=== PATIENT | male | born 1955 | race Two or more races ===

== ENCOUNTER 2017-08-28 20:54 | Inpatient (IN) | payer MEDICARE, MEDICAID ==
[~2017-08-28] VITALS: Ht 177.8 cm; Wt 79.5 kg
[~2017-08-28 20:54] MED LIST: ACET-1156 PR; ACET120S38 PO; ALPR1TAB2 PO; AMLO10TA2 GT; ASCO-22 PO; ASPI-498 GT; BACL10TA PO; BISA-4 PR; CARI-277 PO; DIPH25CA46 GT; DOCU-94 PO; FLUT0.05 NAS; FURO40TA4 PO; GABA300C10 PO; GUAI200T2 GT; GUAI600T23 PO; HAL5T GT; HYDR-4683 PO; HYOS0.1269 SL; INSUINJ48 SC; IPRAAER6 IN; LACT10SO3 GT; LEVE500T22 PO; LISI40TA PO; LORA-654 PO; LORA10CA12 PO; MAGN400T5 OR; MAGNSUS71 PO; METH500T6 GT; METO2.5T11 PO; MORP-109 PO; MORP1TAB12 PO; MULTLIQ29 OR; MUPI2OIN10 TOP; OXYM-15; PANT40TA2 GT; POTA20TA53 PO; SENN1TAB14 GT; SPIR25TA88 PO; ZIN220C GT
[2017-08-28 21:44] LABS: Basophils # (auto) 0.1 uL; Eosinophils # (auto) 0.3 uL; Eosinophils % (auto) 2.2 % (0.0-7.0); Hematocrit 44.8 % (41.0-53.0); Hemoglobin 15.1 g/dL (13.5-17.5); Lymphocytes # (auto) 1.3 uL; Lymphocytes % (auto) 10.4 % (10.0-50.0); Mean Corpuscular Hemoglobin 29.4 pg (28.0-32.0); Mean Corpuscular Hgb Conc. 33.7 g/dL (32.0-36.0); Mean Corpuscular Volume 87.1 fL (80.0-100.0); Monocytes # (auto) 0.7 uL; Monocytes % (auto) 6.1 % (0.0-12.0); Neutrophils # (auto) 9.8 uL; Neutrophils % (auto) 80.3 % (37.0-80.0); Nucleated Red Blood Cells % 0.1 %; Platelet Count (auto) 202 10^3/uL (140-450); Red Blood Cells 5.14 10^6/uL (4.5-5.90); Red Cell Distribution Width 13.6 % (11.8-14.3); White Blood Cell 12.2 10^3/uL (4.4-10.8)
[2017-08-28 21:52] LABS: INR 0.95 (0.9-1.15); Prothrombin Time 10.4 sec (9.37-12.3)
[2017-08-28 22:04] LABS: Alanine Aminotransferase 50 U/L (16-61); Albumin 3.5 g/dL (3.4-5.0); Alkaline Phosphatase 65 U/L (45-117); Anion Gap 6 (5-15); Aspartate Aminotransferase 25 U/L (15-37); BUN/Creatinine Ratio 22.8; Bilirubin, Total 0.5 mg/dL (0.2-1.0); Blood Urea Nitrogen 18 mg/dL (7-18); Calcium 8.9 mg/dL (8.5-10.1); Carbon Dioxide 33 mmol/L (21-32); Chloride 99 mmol/L (98-107); GFR African American 128 mL/min; GFR Non-African American 106 mL/min; Glucose 220 mg/dL (74-106); Magnesium 2.5 mg/dL (1.6-2.6); Potassium 3.7 mmol/L (3.5-5.1); Sodium 138 mmol/L (136-145); Total Protein 7.6 g/dL (6.4-8.2)
[2017-08-28] MEDS ORDERED: LEVOFLOXACIN 750MG 150 ML IV ONE (22:30)
[2017-08-29] MEDS ORDERED: SODIUM CHLORIDE 0.9% 1,000 ML IV SCH (01:09)
[2017-08-29] MEDS ORDERED: DEXTROSE (50%) 50ML SYRG IV PRN (01:15)
[2017-08-29] MEDS ORDERED: AZITHROMYCIN 500MG/ 250ML 250 ML IV ONE (01:15)
[2017-08-29] MEDS ORDERED: FUROSEMIDE 20 MG/2 ML VIAL IV ONE (01:15)
[2017-08-29] MEDS ORDERED: cefTRIAXone 1GM/10ml IVPUSH 10 ML IV ONE (01:15)
[2017-08-29] MEDS ORDERED: MORPHINE SULFATE 4 MG/ML SYR/VIAL IV PRN (01:15)
[2017-08-29] MEDS ORDERED: NITROGLYCERIN 0.4 MG SL TAB SL PRN (01:15)
[2017-08-29] MEDS ORDERED: ONDANSETRON HCL 4 MG/2 ML VIAL IV PRN ×2 (01:15→19:15)
[2017-08-29] MEDS ORDERED: PANTOPRAZOLE 40 MG/10 ML VIAL IV ONE (01:15)
[2017-08-29] MEDS: MORPHINE SULFATE 4 MG/ML SYR/VIAL IV PRN (02:23)
[2017-08-29] MEDS: ALBUTEROL SULF 2.5 MG/0.5ML(0.5%) NEB SOLN NEB PRN ×2 (04:11→20:26)
[2017-08-29] MEDS: IPRATROPIUM BROM 0.5 MG/2.5ML INH SOL NEB PRN ×2 (04:11→20:26)
[2017-08-29] MEDS: InsuLIN REG 1unit/0.01ml Soln (100units/ml) SC SCH ×3 (06:11→18:16)
[2017-08-29] MEDS: ACCU-CHEK COMFORT CURVE STRIP VI SCH ×3 (06:12→18:15)
[2017-08-29] MEDS ORDERED: METOLAZONE 5 MG TAB GT SCH (10:00)
[2017-08-29] MEDS: DOCUSATE ORAL LIQUID 100 MG/10 ML UD GT SCH ×2 (10:30→22:00)
[2017-08-29] MEDS: ENOXAPARIN SOD 40 MG/0.4 ML SYRINGE SC SCH (10:30)
[2017-08-29] MEDS: PANTOPRAZOLE 40 MG/10 ML VIAL IV SCH (10:30)
[2017-08-29] MEDS: LEVETIRACETAM 500 MG TAB PO SCH ×2 (10:30→22:00)
[2017-08-29] MEDS: LISINOPRIL 20 MG TAB GT SCH (10:30)
[2017-08-29] MEDS ORDERED: ACETAMINOPHEN 650 MG RECT SUPP PR ONE ×2 (11:22→11:30)
[2017-08-29] MEDS ORDERED: ONDANSETRON HCL 4 MG/2 ML VIAL IV ONE (12:30)
[2017-08-29] MEDS: PIPERACILLIN-TAZOB 3.375GM 50 ML IV SCH ×2 (15:00→23:00)
[2017-08-29] MEDS ORDERED: MAGNESIUM CITRATE SOLUTION 300 ML BTL PO ONE (16:00)
[2017-08-29] MEDS: SODIUM CHLORIDE 0.9% 1,000 ML IV SCH (16:06)
[2017-08-29] MEDS: LACTULOSE 20Gm/30ML SOLN GT SCH ×2 (18:25→22:00)
[2017-08-29] MEDS: ACETAMINOPHEN 325 MG TAB PO PRN (19:39)
[2017-08-29 21:34] VITALS: BP 117/67
[2017-08-29] MEDS: AZITHROMYCIN 500MG/ 250ML 250 ML IV SCH (22:00)
[2017-08-29] MEDS ORDERED: cefTRIAXone 1GM/10ml IVPUSH 10 ML IV SCH (22:00)
[2017-08-29 22:30] VITALS: BP 102/69
[2017-08-29 23:00] VITALS: BP_SYST 101; BP_SYST 102; BP_DIAS 56; BP_DIAS 60
[2017-08-29 23:30] VITALS: BP 103/66
[2017-08-30] VITALS (10 sets, daily range): BP systolic 102–131; BP diastolic 56–88
[2017-08-30] MEDS: LACTULOSE 20Gm/30ML SOLN GT SCH ×6 (02:00→23:00)
[2017-08-30] MEDS: SODIUM CHLORIDE 0.9% 1,000 ML IV SCH (02:05)
[2017-08-30 05:23] LABS: Basophils # (auto) 0.1 uL; Basophils % (auto) 0.8 % (0.0-2.0); Eosinophils # (auto) 0.1 uL; Eosinophils % (auto) 0.6 % (0.0-7.0); Hematocrit 43.9 % (41.0-53.0); Hemoglobin 14.6 g/dL (13.5-17.5); Lymphocytes # (auto) 1.1 uL; Lymphocytes % (auto) 9.3 % (10.0-50.0); Mean Corpuscular Hemoglobin 29.2 pg (28.0-32.0); Mean Corpuscular Hgb Conc. 33.2 g/dL (32.0-36.0); Monocytes # (auto) 0.9 uL; Monocytes % (auto) 7.3 % (0.0-12.0); Neutrophils # (auto) 9.6 uL; Platelet Count (auto) 189 10^3/uL (140-450); Red Blood Cells 4.99 10^6/uL (4.5-5.90); Red Cell Distribution Width 13.7 % (11.8-14.3); White Blood Cell 11.7 10^3/uL (4.4-10.8)
[2017-08-30 05:46] LABS: Albumin 3.2 g/dL (3.4-5.0); BUN/Creatinine Ratio 23.6; Bilirubin, Total 0.9 mg/dL (0.2-1.0); Potassium 3.5 mmol/L (3.5-5.1); Total Protein 7.2 g/dL (6.4-8.2)
[2017-08-30] MEDS: InsuLIN REG 1unit/0.01ml Soln (100units/ml) SC SCH ×4 (06:00→18:00)
[2017-08-30] MEDS: PIPERACILLIN-TAZOB 3.375GM 50 ML IV SCH ×4 (06:00→23:00)
[2017-08-30] MEDS: ACCU-CHEK COMFORT CURVE STRIP VI SCH ×4 (06:00→18:00)
[2017-08-30] MEDS: IPRATROPIUM BROM 0.5 MG/2.5ML INH SOL NEB PRN ×3 (06:46→19:37)
[2017-08-30] MEDS: ALBUTEROL SULF 2.5 MG/0.5ML(0.5%) NEB SOLN NEB PRN ×3 (06:46→19:38)
[2017-08-30] MEDS: LEVETIRACETAM 500 MG TAB PO SCH ×2 (10:00→22:00)
[2017-08-30] MEDS: LISINOPRIL 20 MG TAB GT SCH (10:00)
[2017-08-30 10:36] LABS: Urine Bacteria NONE SEEN /hpf (None Seen); Urine Blood 2+ /uL (Negative); Urine Specific Gravity 1.027 (1.001-1.035); Urine WBC 2 /hpf (0 - 3)
[2017-08-30] MEDS: PANTOPRAZOLE 40 MG/10 ML VIAL IV SCH (10:59)
[2017-08-30] MEDS: DOCUSATE ORAL LIQUID 100 MG/10 ML UD GT SCH ×2 (10:59→22:00)
[2017-08-30] MEDS: ENOXAPARIN SOD 40 MG/0.4 ML SYRINGE SC SCH (11:58)
[2017-08-30] MEDS ORDERED: MAGNESIUM CITRATE SOLUTION 300 ML BTL PO ONE (14:30)
[2017-08-30] MEDS ORDERED: Diabetisource AC 1 Liter GT SCH (14:30)
[2017-08-30] MEDS ORDERED: SODIUM CHLORIDE 0.9% 1,000 ML IV SCH (14:30)
[2017-08-30] MEDS: MORPHINE SULFATE 4 MG/ML SYR/VIAL IV PRN (21:15)
[2017-08-30] MEDS: AZITHROMYCIN 500MG/ 250ML 250 ML IV SCH (23:00)
[2017-08-30] MEDS: METOCLOPRAMIDE HCL 5MG/ml INJ 2ml VIAL IV SCH (23:00)
[2017-08-31] VITALS (7 sets, daily range): BP systolic 108–133; BP diastolic 69–81
[2017-08-31] MEDS: LACTULOSE 20Gm/30ML SOLN GT SCH ×7 (02:00→21:33)
[2017-08-31 05:14] LABS: Basophils # (auto) 0.1 uL; Basophils % (auto) 1.4 % (0.0-2.0); Eosinophils # (auto) 0.5 uL; Eosinophils % (auto) 7.2 % (0.0-7.0); Hemoglobin 14.3 g/dL (13.5-17.5); Lymphocytes % (auto) 14.9 % (10.0-50.0); Mean Corpuscular Hemoglobin 29.5 pg (28.0-32.0); Mean Corpuscular Hgb Conc. 33.2 g/dL (32.0-36.0); Mean Corpuscular Volume 89.1 fL (80.0-100.0); Monocytes # (auto) 0.8 uL; Monocytes % (auto) 11.6 % (0.0-12.0); Neutrophils # (auto) 4.4 uL; Neutrophils % (auto) 64.9 % (37.0-80.0); Nucleated Red Blood Cells % 0.1 %; Platelet Count (auto) 182 10^3/uL (140-450); Red Blood Cells 4.83 10^6/uL (4.5-5.90); Red Cell Distribution Width 13.5 % (11.8-14.3); White Blood Cell 6.7 10^3/uL (4.4-10.8)
[2017-08-31 05:35] LABS: BUN/Creatinine Ratio 26.8; Potassium 3.3 mmol/L (3.5-5.1)
[2017-08-31] MEDS: METOCLOPRAMIDE HCL 5MG/ml INJ 2ml VIAL IV SCH ×3 (05:52→21:35)
[2017-08-31] MEDS: ACCU-CHEK COMFORT CURVE STRIP VI SCH ×4 (06:02→18:04)
[2017-08-31] MEDS: InsuLIN REG 1unit/0.01ml Soln (100units/ml) SC SCH ×4 (06:02→18:04)
[2017-08-31] MEDS: PIPERACILLIN-TAZOB 3.375GM 50 ML IV SCH ×3 (06:04→23:28)
[2017-08-31] MEDS: ENOXAPARIN SOD 40 MG/0.4 ML SYRINGE SC SCH (10:11)
[2017-08-31] MEDS: DOCUSATE ORAL LIQUID 100 MG/10 ML UD GT SCH ×2 (10:11→21:34)
[2017-08-31] MEDS: PANTOPRAZOLE 40 MG/10 ML VIAL IV SCH (10:11)
[2017-08-31] MEDS: LEVETIRACETAM 500 MG/5ML ORAL SOLN UD GT SCH ×2 (10:12→21:34)
[2017-08-31] MEDS ORDERED: POTASSIUM CHL 10% (20 MEQ/15ML) 15ml ORAL SOLN GT ONE (11:45)
[2017-08-31] MEDS: AZITHROMYCIN 500MG/ 250ML 250 ML IV SCH (21:35)
[2017-09-01] MEDS: ACCU-CHEK COMFORT CURVE STRIP VI SCH ×5 (00:07→23:59)
[2017-09-01] MEDS: InsuLIN REG 1unit/0.01ml Soln (100units/ml) SC SCH ×4 (00:11→17:49)
[2017-09-01] MEDS: LACTULOSE 20Gm/30ML SOLN GT SCH ×6 (02:00→22:24)
[2017-09-01] MEDS: METOCLOPRAMIDE HCL 5MG/ml INJ 2ml VIAL IV SCH ×3 (05:28→22:24)
[2017-09-01] MEDS: PIPERACILLIN-TAZOB 3.375GM 50 ML IV SCH ×3 (05:29→23:25)
[2017-09-01] MEDS: Diabetisource AC 1 Liter GT SCH (05:35)
[2017-09-01 05:56] VITALS: BP 122/73
[2017-09-01 06:15] LABS: BUN/Creatinine Ratio 27.6; Calcium 8.7 mg/dL (8.5-10.1); Potassium 3.4 mmol/L (3.5-5.1)
[2017-09-01] MEDS: MORPHINE SULFATE 4 MG/ML SYR/VIAL IV PRN (08:55)
[2017-09-01 09:00] VITALS: BP 118/71
[2017-09-01] MEDS: PANTOPRAZOLE 40 MG/10 ML VIAL IV SCH (09:50)
[2017-09-01] MEDS: DOCUSATE ORAL LIQUID 100 MG/10 ML UD GT SCH ×2 (09:51→22:24)
[2017-09-01] MEDS: ENOXAPARIN SOD 40 MG/0.4 ML SYRINGE SC SCH (09:51)
[2017-09-01] MEDS: LEVETIRACETAM 500 MG/5ML ORAL SOLN UD GT SCH ×2 (09:51→22:24)
[2017-09-01] MEDS ORDERED: POTASSIUM CHL 10 Meq TABLET PO ONE (10:30)
[2017-09-01] MEDS ORDERED: POTASSIUM CHL 10% (20 MEQ/15ML) 15ml ORAL SOLN GT ONE (10:30)
[2017-09-01 13:00] VITALS: BP 113/74
[2017-09-01 17:00] VITALS: BP 111/69
[2017-09-01] MEDS: IPRATROPIUM BROM 0.5 MG/2.5ML INH SOL NEB PRN (18:19)
[2017-09-01] MEDS: ALBUTEROL SULF 2.5 MG/0.5ML(0.5%) NEB SOLN NEB PRN (18:19)
[2017-09-01 20:00] VITALS: BP 131/84
[2017-09-01] MEDS: AZITHROMYCIN 500MG/ 250ML 250 ML IV SCH (21:24)
[2017-09-02] VITALS (7 sets, daily range): BP systolic 115–146; BP diastolic 70–84
[2017-09-02] MEDS: InsuLIN REG 1unit/0.01ml Soln (100units/ml) SC SCH ×4 (00:18→17:26)
[2017-09-02] MEDS: LACTULOSE 20Gm/30ML SOLN GT SCH ×6 (01:58→22:00)
[2017-09-02] MEDS: METOCLOPRAMIDE HCL 5MG/ml INJ 2ml VIAL IV SCH ×3 (05:48→22:23)
[2017-09-02] MEDS: ACCU-CHEK COMFORT CURVE STRIP VI SCH ×4 (05:49→23:41)
[2017-09-02] MEDS: PIPERACILLIN-TAZOB 3.375GM 50 ML IV SCH ×3 (06:01→21:45)
[2017-09-02 06:48] LABS: Basophils # (auto) 0.1 uL; Basophils % (auto) 1.7 % (0.0-2.0); Eosinophils # (auto) 0.6 uL; Eosinophils % (auto) 9.7 % (0.0-7.0); Hematocrit 43.4 % (41.0-53.0); Hemoglobin 14.4 g/dL (13.5-17.5); Lymphocytes # (auto) 1.6 uL; Lymphocytes % (auto) 27.1 % (10.0-50.0); Mean Corpuscular Hemoglobin 29.4 pg (28.0-32.0); Mean Corpuscular Hgb Conc. 33.1 g/dL (32.0-36.0); Monocytes # (auto) 0.6 uL; Monocytes % (auto) 11.1 % (0.0-12.0); Neutrophils # (auto) 2.9 uL; Neutrophils % (auto) 50.4 % (37.0-80.0); Nucleated Red Blood Cells % 0.1 %; Platelet Count (auto) 205 10^3/uL (140-450); Red Blood Cells 4.88 10^6/uL (4.5-5.90); Red Cell Distribution Width 13.2 % (11.8-14.3); White Blood Cell 5.8 10^3/uL (4.4-10.8)
[2017-09-02 07:29] LABS: Albumin 3.1 g/dL (3.4-5.0); BUN/Creatinine Ratio 34.3; Bilirubin, Total 0.5 mg/dL (0.2-1.0); Potassium 3.4 mmol/L (3.5-5.1); Total Protein 7.4 g/dL (6.4-8.2)
[2017-09-02] MEDS: ALBUTEROL SULF 2.5 MG/0.5ML(0.5%) NEB SOLN NEB PRN (10:26)
[2017-09-02] MEDS: IPRATROPIUM BROM 0.5 MG/2.5ML INH SOL NEB PRN (10:26)
[2017-09-02] MEDS: LEVETIRACETAM 500 MG/5ML ORAL SOLN UD GT SCH ×2 (11:19→22:18)
[2017-09-02] MEDS: DOCUSATE ORAL LIQUID 100 MG/10 ML UD GT SCH ×2 (11:19→22:00)
[2017-09-02] MEDS: ENOXAPARIN SOD 40 MG/0.4 ML SYRINGE SC SCH (11:20)
[2017-09-02] MEDS: PANTOPRAZOLE 40 MG/10 ML VIAL IV SCH (11:20)
[2017-09-02] MEDS ORDERED: BISACODYL 10 MG RECT SUPP PR ONE (11:30)
[2017-09-02] MEDS: MORPHINE SULFATE 4 MG/ML SYR/VIAL IV PRN (11:45)
[2017-09-03] VITALS (7 sets, daily range): BP systolic 122–145; BP diastolic 73–88
[2017-09-03] MEDS: InsuLIN REG 1unit/0.01ml Soln (100units/ml) SC SCH ×5 (00:03→23:44)
[2017-09-03] MEDS: LACTULOSE 20Gm/30ML SOLN GT SCH ×6 (01:57→21:54)
[2017-09-03] MEDS: AZITHROMYCIN 500MG/ 250ML 250 ML IV SCH (01:58)
[2017-09-03] MEDS: ACCU-CHEK COMFORT CURVE STRIP VI SCH ×4 (05:24→23:43)
[2017-09-03] MEDS: METOCLOPRAMIDE HCL 5MG/ml INJ 2ml VIAL IV SCH (05:29)
[2017-09-03] MEDS: PIPERACILLIN-TAZOB 3.375GM 50 ML IV SCH ×3 (05:29→21:54)
[2017-09-03] MEDS: IPRATROPIUM BROM 0.5 MG/2.5ML INH SOL NEB PRN (08:28)
[2017-09-03] MEDS: ALBUTEROL SULF 2.5 MG/0.5ML(0.5%) NEB SOLN NEB PRN (08:28)
[2017-09-03] MEDS ORDERED: BISACODYL 10 MG RECT SUPP PR PRN (10:00)
[2017-09-03] MEDS: DOCUSATE ORAL LIQUID 100 MG/10 ML UD GT SCH ×2 (10:25→21:55)
[2017-09-03] MEDS: PANTOPRAZOLE 40 MG/10 ML VIAL IV SCH (10:25)
[2017-09-03] MEDS: LEVETIRACETAM 500 MG/5ML ORAL SOLN UD GT SCH ×2 (10:26→21:54)
[2017-09-03] MEDS: ENOXAPARIN SOD 40 MG/0.4 ML SYRINGE SC SCH (10:26)
[2017-09-03] MEDS ORDERED: FUROSEMIDE 20 MG/2 ML VIAL IV ONE (10:30)
[2017-09-03] MEDS: IPRATROPIUM BROM 0.5 MG/2.5ML INH SOL NEB SCH ×2 (12:22→20:10)
[2017-09-03] MEDS: ALBUTEROL SULF 2.5 MG/0.5ML(0.5%) NEB SOLN NEB SCH ×2 (12:22→20:10)
[2017-09-03] MEDS: Diabetisource AC 1 Liter GT SCH (21:55)
[2017-09-03] MEDS: INSULIN LANTUS (GLARGINE) 1 /0.01ml (100units/ml) SC SCH (22:27)
[2017-09-03] MEDS: MORPHINE SULFATE 4 MG/ML SYR/VIAL IV PRN (23:17)
[2017-09-04] VITALS (8 sets, daily range): BP systolic 123–169; BP diastolic 79–92
[2017-09-04] MEDS: ALBUTEROL SULF 2.5 MG/0.5ML(0.5%) NEB SOLN NEB SCH ×4 (01:05→18:36)
[2017-09-04] MEDS: IPRATROPIUM BROM 0.5 MG/2.5ML INH SOL NEB SCH ×4 (01:06→18:36)
[2017-09-04] MEDS: LACTULOSE 20Gm/30ML SOLN GT SCH ×6 (02:03→22:00)
[2017-09-04] MEDS: ACCU-CHEK COMFORT CURVE STRIP VI SCH ×3 (05:58→17:49)
[2017-09-04] MEDS: PIPERACILLIN-TAZOB 3.375GM 50 ML IV SCH ×3 (05:58→22:50)
[2017-09-04] MEDS: InsuLIN REG 1unit/0.01ml Soln (100units/ml) SC SCH ×3 (06:09→17:48)
[2017-09-04 09:42] LABS: BUN/Creatinine Ratio 37.7; Calcium 9.3 mg/dL (8.5-10.1); Potassium 3.6 mmol/L (3.5-5.1)
[2017-09-04] MEDS ORDERED: MAGNESIUM OXIDE 400 MG TAB PO ONE (10:15)
[2017-09-04] MEDS: LEVETIRACETAM 500 MG/5ML ORAL SOLN UD GT SCH ×2 (10:45→22:49)
[2017-09-04] MEDS: ENOXAPARIN SOD 40 MG/0.4 ML SYRINGE SC SCH (10:45)
[2017-09-04] MEDS: DOCUSATE ORAL LIQUID 100 MG/10 ML UD GT SCH ×2 (10:45→22:49)
[2017-09-04] MEDS: PANTOPRAZOLE 40 MG/10 ML VIAL IV SCH (10:45)
[2017-09-04] MEDS: INSULIN LANTUS (GLARGINE) 1 /0.01ml (100units/ml) SC SCH (23:14)
[2017-09-05] MEDS: ALBUTEROL SULF 2.5 MG/0.5ML(0.5%) NEB SOLN NEB SCH ×4 (00:01→18:33)
[2017-09-05] MEDS: IPRATROPIUM BROM 0.5 MG/2.5ML INH SOL NEB SCH ×4 (00:01→18:33)
[2017-09-05] MEDS: ACCU-CHEK COMFORT CURVE STRIP VI SCH ×4 (00:22→18:08)
[2017-09-05] MEDS: InsuLIN REG 1unit/0.01ml Soln (100units/ml) SC SCH ×4 (00:22→18:08)
[2017-09-05] MEDS: LACTULOSE 20Gm/30ML SOLN GT SCH ×6 (01:37→23:00)
[2017-09-05] MEDS: PIPERACILLIN-TAZOB 3.375GM 50 ML IV SCH ×3 (05:33→23:00)
[2017-09-05 05:45] VITALS: BP 143/85
[2017-09-05] MEDS ORDERED: ALBUTEROL SULF 2.5 MG/0.5ML(0.5%) NEB SOLN ONE ×2 (05:45→11:16)
[2017-09-05] MEDS ORDERED: IPRATROPIUM BROM 0.5 MG/2.5ML INH SOL ONE ×2 (05:45→11:16)
[2017-09-05 05:58] LABS: Hematocrit 43.1 % (41.0-53.0); Hemoglobin 14.1 g/dL (13.5-17.5); Mean Corpuscular Hemoglobin 28.8 pg (28.0-32.0); Mean Corpuscular Hgb Conc. 32.7 g/dL (32.0-36.0); Platelet Count (auto) 220 10^3/uL (140-450); Red Cell Distribution Width 13.7 % (11.8-14.3); White Blood Cell 13.6 10^3/uL (4.4-10.8)
[2017-09-05 06:07] LABS: BUN/Creatinine Ratio 38.1; Potassium 3.5 mmol/L (3.5-5.1)
[2017-09-05 06:09] LABS: Band Neutrophils % (manual) 0; Blast Cells 0; Metamyelocytes % 0; Myelocytes % 0; Promyelocytes % 0; Reactive Lymphocytes 0
[2017-09-05 06:53] LABS: Basophils % (manual) 1 (0.0-2.0); Eosinophils % (manual) 2 (0-7); Lymphocytes % (manual) 12 (10.0-50.0); Monocytes % (manual) 8 (0-12)
[2017-09-05 08:27] VITALS: BP 149/92
[2017-09-05] MEDS ORDERED: VANCOMYCIN PER PHARMACY 0 MG IV SCH (10:15)
[2017-09-05] MEDS: ENOXAPARIN SOD 40 MG/0.4 ML SYRINGE SC SCH (10:41)
[2017-09-05] MEDS: PANTOPRAZOLE 40 MG/10 ML VIAL IV SCH (10:41)
[2017-09-05] MEDS: MAGNESIUM OXIDE 400 MG TAB PO SCH (10:42)
[2017-09-05] MEDS: DOCUSATE ORAL LIQUID 100 MG/10 ML UD GT SCH ×2 (10:42→23:00)
[2017-09-05] MEDS: LEVETIRACETAM 500 MG/5ML ORAL SOLN UD GT SCH ×2 (10:43→23:00)
[2017-09-05] MEDS: ACETAMINOPHEN 325 MG TAB PO PRN (10:44)
[2017-09-05] MEDS: VANCOMYCIN 1GM/250ML 250 ML IV SCH ×2 (10:57→23:31)
[2017-09-05] MEDS ORDERED: ACETYLCYSTEINE 10 %(100MG/ML) SOL 4ML ONE (11:16)
[2017-09-05] MEDS: ACETYLCYSTEINE 10 %(100MG/ML) SOL 4ML NEB SCH ×2 (11:27→18:33)
[2017-09-05 12:16] VITALS: BP 124/73
[2017-09-05] MEDS: HYDROcodone-ACET 5/325MG TAB PO PRN (13:57)
[2017-09-05] MEDS: FREE WATER GT SCH ×2 (14:11→18:07)
[2017-09-05 17:00] VITALS: BP 141/85
[2017-09-05 20:00] VITALS: BP 148/83
[2017-09-05 21:56] VITALS: BP 114/83
[2017-09-05] MEDS ORDERED: INSULIN LANTUS (GLARGINE) 1 /0.01ml (100units/ml) SC SCH (22:00)
[2017-09-05] MEDS: MORPHINE SULFATE 4 MG/ML SYR/VIAL IV PRN (23:26)
[2017-09-06] MEDS: IPRATROPIUM BROM 0.5 MG/2.5ML INH SOL NEB SCH ×4 (00:24→18:24)
[2017-09-06] MEDS: ACETYLCYSTEINE 10 %(100MG/ML) SOL 4ML NEB SCH ×4 (00:24→18:24)
[2017-09-06] MEDS: ALBUTEROL SULF 2.5 MG/0.5ML(0.5%) NEB SOLN NEB SCH ×4 (00:24→18:24)
[2017-09-06] MEDS: FREE WATER GT SCH ×4 (00:31→18:25)
[2017-09-06] MEDS: ACCU-CHEK COMFORT CURVE STRIP VI SCH ×4 (00:43→18:32)
[2017-09-06] MEDS: InsuLIN REG 1unit/0.01ml Soln (100units/ml) SC SCH ×4 (00:43→18:32)
[2017-09-06] MEDS: LACTULOSE 20Gm/30ML SOLN GT SCH ×6 (02:20→22:34)
[2017-09-06] MEDS: ACETAMINOPHEN 325 MG TAB PO PRN ×2 (03:12→12:24)
[2017-09-06 05:00] VITALS: BP 143/85
[2017-09-06] MEDS: PIPERACILLIN-TAZOB 3.375GM 50 ML IV SCH ×3 (05:39→22:35)
[2017-09-06 05:47] LABS: Basophils # (auto) 0.1 uL; Basophils % (auto) 0.8 % (0.0-2.0); Eosinophils # (auto) 0.3 uL; Eosinophils % (auto) 3.4 % (0.0-7.0); Hematocrit 41.8 % (41.0-53.0); Hemoglobin 13.8 g/dL (13.5-17.5); Lymphocytes # (auto) 1.6 uL; Lymphocytes % (auto) 20.3 % (10.0-50.0); Mean Corpuscular Hemoglobin 29.5 pg (28.0-32.0); Mean Corpuscular Volume 89.4 fL (80.0-100.0); Monocytes # (auto) 0.8 uL; Monocytes % (auto) 10.3 % (0.0-12.0); Neutrophils # (auto) 5.2 uL; Neutrophils % (auto) 65.2 % (37.0-80.0); Platelet Count (auto) 192 10^3/uL (140-450); Red Blood Cells 4.68 10^6/uL (4.5-5.90); Red Cell Distribution Width 13.6 % (11.8-14.3)
[2017-09-06 06:16] LABS: Bilirubin, Total 0.3 mg/dL (0.2-1.0); Calcium 8.9 mg/dL (8.5-10.1); Potassium 3.3 mmol/L (3.5-5.1); Total Protein 7.1 g/dL (6.4-8.2)
[2017-09-06 09:00] VITALS: BP 152/84
[2017-09-06] MEDS: LEVETIRACETAM 500 MG/5ML ORAL SOLN UD GT SCH ×2 (09:08→22:35)
[2017-09-06] MEDS: MAGNESIUM OXIDE 400 MG TAB PO SCH (09:08)
[2017-09-06] MEDS: PANTOPRAZOLE 40 MG/10 ML VIAL IV SCH (09:08)
[2017-09-06] MEDS: HYDROcodone-ACET 5/325MG TAB PO PRN (09:09)
[2017-09-06] MEDS: ENOXAPARIN SOD 40 MG/0.4 ML SYRINGE SC SCH (09:10)
[2017-09-06] MEDS: DOCUSATE ORAL LIQUID 100 MG/10 ML UD GT SCH ×2 (09:10→22:35)
[2017-09-06] MEDS ORDERED: DEXTROSE (50%) 50ML SYRG IV PRN (10:15)
[2017-09-06] MEDS ORDERED: POTASSIUM CHL 10% (20 MEQ/15ML) 15ml ORAL SOLN PO ONE (10:15)
[2017-09-06] MEDS: VANCOMYCIN 1GM/250ML 250 ML IV SCH ×2 (10:42→23:30)
[2017-09-06 12:01] VITALS: BP 123/80
[2017-09-06 16:59] VITALS: BP 133/80
[2017-09-06 20:00] VITALS: BP 146/85
[2017-09-06 22:00] VITALS: BP 146/85
[2017-09-06] MEDS: INSULIN LANTUS (GLARGINE) 1 /0.01ml (100units/ml) SC SCH (22:36)
[2017-09-07] MEDS: IPRATROPIUM BROM 0.5 MG/2.5ML INH SOL NEB SCH ×4 (00:21→19:46)
[2017-09-07] MEDS: ACETYLCYSTEINE 10 %(100MG/ML) SOL 4ML NEB SCH ×4 (00:21→19:46)
[2017-09-07] MEDS: ALBUTEROL SULF 2.5 MG/0.5ML(0.5%) NEB SOLN NEB SCH ×4 (00:21→19:46)
[2017-09-07] MEDS: LACTULOSE 20Gm/30ML SOLN GT SCH ×6 (02:00→21:57)
[2017-09-07] MEDS: InsuLIN REG 1unit/0.01ml Soln (100units/ml) SC SCH ×4 (03:42→18:00)
[2017-09-07] MEDS: ACCU-CHEK COMFORT CURVE STRIP VI SCH ×4 (03:43→18:00)
[2017-09-07 05:00] VITALS: BP 153/92
[2017-09-07] MEDS: FREE WATER GT SCH ×4 (06:03→18:00)
[2017-09-07] MEDS: PIPERACILLIN-TAZOB 3.375GM 50 ML IV SCH (06:03)
[2017-09-07 06:48] LABS: Calcium 8.6 mg/dL (8.5-10.1); Potassium 3.4 mmol/L (3.5-5.1)
[2017-09-07 06:49] LABS: Calcium 8.7 mg/dL (8.5-10.1); Potassium 3.5 mmol/L (3.5-5.1)
[2017-09-07 06:51] LABS: BUN/Creatinine Ratio 35.2
[2017-09-07 06:52] LABS: BUN/Creatinine Ratio 33.8
[2017-09-07 06:55] LABS: Bilirubin, Total 0.3 mg/dL (0.2-1.0); Total Protein 7.1 g/dL (6.4-8.2)
[2017-09-07 09:00] VITALS: BP 145/87
[2017-09-07] MEDS: PANTOPRAZOLE 40 MG/10 ML VIAL IV SCH (10:17)
[2017-09-07] MEDS: LEVETIRACETAM 500 MG/5ML ORAL SOLN UD GT SCH ×2 (10:17→21:57)
[2017-09-07] MEDS: DOCUSATE ORAL LIQUID 100 MG/10 ML UD GT SCH ×2 (10:17→21:57)
[2017-09-07] MEDS: ENOXAPARIN SOD 40 MG/0.4 ML SYRINGE SC SCH (10:18)
[2017-09-07] MEDS: MAGNESIUM OXIDE 400 MG TAB PO SCH (10:18)
[2017-09-07] MEDS: VANCOMYCIN 1GM/250ML 250 ML IV SCH (12:03)
[2017-09-07] MEDS ORDERED: HYDROcodone-ACET 5/325MG TAB PO PRN (12:30)
[2017-09-07] MEDS ORDERED: MORPHINE SULFATE 4 MG/ML SYR/VIAL IV PRN (12:30)
[2017-09-07 13:00] VITALS: BP 120/69
[2017-09-07] MEDS ORDERED: LACT10SO3 GT (14:58)
[2017-09-07] MEDS ORDERED: METF500T PEG (14:58)
[2017-09-07] MEDS ORDERED: LEVO750T64 PEG (14:58)
[2017-09-07 17:00] VITALS: BP 128/76
[2017-09-07] MEDS: cefTRIAXone 1GM/10ml IVPUSH 10 ML IV SCH (19:02)
[2017-09-07] MEDS: metFORMIN HYDROCHLORIDE 500 MG TAB PEG SCH (19:08)
[2017-09-07] MEDS ORDERED: IPRATROPIUM BROM 0.5 MG/2.5ML INH SOL ONE (19:42)
[2017-09-07] MEDS ORDERED: ALBUTEROL SULF 2.5 MG/0.5ML(0.5%) NEB SOLN ONE (19:42)
[2017-09-07 20:00] VITALS: BP 146/85
[2017-09-07 22:00] VITALS: BP 131/75
[2017-09-07] MEDS: INSULIN LANTUS (GLARGINE) 1 /0.01ml (100units/ml) SC SCH (22:08)
[2017-09-08] VITALS (7 sets, daily range): BP systolic 121–145; BP diastolic 74–80
[2017-09-08] MEDS: ALBUTEROL SULF 2.5 MG/0.5ML(0.5%) NEB SOLN NEB SCH ×4 (00:19→18:00)
[2017-09-08] MEDS: ACETYLCYSTEINE 10 %(100MG/ML) SOL 4ML NEB SCH ×4 (00:20→18:00)
[2017-09-08] MEDS: IPRATROPIUM BROM 0.5 MG/2.5ML INH SOL NEB SCH ×4 (00:20→18:00)
[2017-09-08] MEDS: ACCU-CHEK COMFORT CURVE STRIP VI SCH ×4 (00:51→18:43)
[2017-09-08] MEDS: FREE WATER GT SCH ×5 (00:51→23:34)
[2017-09-08] MEDS: InsuLIN REG 1unit/0.01ml Soln (100units/ml) SC SCH ×4 (00:52→18:54)
[2017-09-08] MEDS: LACTULOSE 20Gm/30ML SOLN GT SCH ×6 (02:35→21:59)
[2017-09-08] MEDS ORDERED: IPRATROPIUM BROM 0.5 MG/2.5ML INH SOL ONE (06:07)
[2017-09-08] MEDS ORDERED: ALBUTEROL SULF 2.5 MG/0.5ML(0.5%) NEB SOLN ONE (06:07)
[2017-09-08] MEDS ORDERED: ACETYLCYSTEINE 10 %(100MG/ML) SOL 4ML ONE (06:07)
[2017-09-08] MEDS: metFORMIN HYDROCHLORIDE 500 MG TAB PEG SCH ×2 (06:33→18:51)
[2017-09-08] MEDS: cefTRIAXone 1GM/10ml IVPUSH 10 ML IV SCH (09:31)
[2017-09-08] MEDS: DOCUSATE ORAL LIQUID 100 MG/10 ML UD GT SCH ×2 (10:45→21:58)
[2017-09-08] MEDS: ENOXAPARIN SOD 40 MG/0.4 ML SYRINGE SC SCH (10:46)
[2017-09-08] MEDS: MAGNESIUM OXIDE 400 MG TAB PO SCH (10:46)
[2017-09-08] MEDS: LEVETIRACETAM 500 MG/5ML ORAL SOLN UD GT SCH ×2 (10:47→21:58)
[2017-09-08] MEDS: PANTOPRAZOLE 40 MG/10 ML VIAL IV SCH (10:47)
[2017-09-08] MEDS: INSULIN LANTUS (GLARGINE) 1 /0.01ml (100units/ml) SC SCH (21:59)
[2017-09-09] VITALS (7 sets, daily range): BP systolic 130–162; BP diastolic 69–95
[2017-09-09] MEDS: IPRATROPIUM BROM 0.5 MG/2.5ML INH SOL NEB SCH ×4 (00:15→18:09)
[2017-09-09] MEDS: ACETYLCYSTEINE 10 %(100MG/ML) SOL 4ML NEB SCH ×4 (00:15→18:09)
[2017-09-09] MEDS: ALBUTEROL SULF 2.5 MG/0.5ML(0.5%) NEB SOLN NEB SCH ×4 (00:17→18:09)
[2017-09-09] MEDS: LACTULOSE 20Gm/30ML SOLN GT SCH ×6 (02:00→21:31)
[2017-09-09] MEDS: Diabetisource AC 1 Liter GT SCH (02:08)
[2017-09-09] MEDS: FREE WATER GT SCH ×3 (06:00→18:42)
[2017-09-09] MEDS: ACCU-CHEK COMFORT CURVE STRIP VI SCH ×4 (06:00→18:00)
[2017-09-09] MEDS ORDERED: ACETYLCYSTEINE 10 %(100MG/ML) SOL 4ML ONE (06:16)
[2017-09-09] MEDS ORDERED: IPRATROPIUM BROM 0.5 MG/2.5ML INH SOL ONE (06:16)
[2017-09-09] MEDS ORDERED: ALBUTEROL SULF 2.5 MG/0.5ML(0.5%) NEB SOLN ONE (06:16)
[2017-09-09] MEDS: InsuLIN REG 1unit/0.01ml Soln (100units/ml) SC SCH ×4 (06:29→18:43)
[2017-09-09] MEDS: metFORMIN HYDROCHLORIDE 500 MG TAB PEG SCH ×2 (07:02→18:42)
[2017-09-09] MEDS: cefTRIAXone 1GM/10ml IVPUSH 10 ML IV SCH (08:52)
[2017-09-09] MEDS: DOCUSATE ORAL LIQUID 100 MG/10 ML UD GT SCH ×2 (10:45→22:04)
[2017-09-09] MEDS: LEVETIRACETAM 500 MG/5ML ORAL SOLN UD GT SCH ×2 (10:46→22:04)
[2017-09-09] MEDS: ENOXAPARIN SOD 40 MG/0.4 ML SYRINGE SC SCH (10:46)
[2017-09-09] MEDS: PANTOPRAZOLE 40 MG/10 ML VIAL IV SCH (10:46)
[2017-09-09] MEDS: MAGNESIUM OXIDE 400 MG TAB PO SCH (10:47)
[2017-09-09] MEDS: INSULIN LANTUS (GLARGINE) 1 /0.01ml (100units/ml) SC SCH (22:09)
[2017-09-10] VITALS (7 sets, daily range): BP systolic 136–149; BP diastolic 83–90
[2017-09-10] MEDS: ACCU-CHEK COMFORT CURVE STRIP VI SCH ×4 (00:19→17:56)
[2017-09-10] MEDS: FREE WATER GT SCH ×4 (00:19→17:56)
[2017-09-10] MEDS: InsuLIN REG 1unit/0.01ml Soln (100units/ml) SC SCH ×4 (00:24→17:56)
[2017-09-10] MEDS: LACTULOSE 20Gm/30ML SOLN GT SCH ×6 (01:39→22:14)
[2017-09-10] MEDS ORDERED: ALBUTEROL SULF 2.5 MG/0.5ML(0.5%) NEB SOLN ONE (05:33)
[2017-09-10] MEDS ORDERED: IPRATROPIUM BROM 0.5 MG/2.5ML INH SOL ONE (05:33)
[2017-09-10] MEDS ORDERED: ACETYLCYSTEINE 10 %(100MG/ML) SOL 4ML ONE (05:34)
[2017-09-10] MEDS: IPRATROPIUM BROM 0.5 MG/2.5ML INH SOL NEB SCH ×4 (05:50→19:50)
[2017-09-10] MEDS: ACETYLCYSTEINE 10 %(100MG/ML) SOL 4ML NEB SCH ×4 (05:50→19:50)
[2017-09-10] MEDS: ALBUTEROL SULF 2.5 MG/0.5ML(0.5%) NEB SOLN NEB SCH ×4 (05:50→19:50)
[2017-09-10] MEDS: metFORMIN HYDROCHLORIDE 500 MG TAB PEG SCH ×2 (06:25→17:56)
[2017-09-10] MEDS ORDERED: AMIKACIN 0 ML IV SCH (09:30)
[2017-09-10] MEDS: MAGNESIUM OXIDE 400 MG TAB PO SCH (10:11)
[2017-09-10] MEDS: ENOXAPARIN SOD 40 MG/0.4 ML SYRINGE SC SCH (10:12)
[2017-09-10] MEDS: LEVETIRACETAM 500 MG/5ML ORAL SOLN UD GT SCH ×2 (10:12→22:15)
[2017-09-10] MEDS: AMIKACIN 1,000 MG in D5W 5% 100 ML IV SCH (10:12)
[2017-09-10] MEDS ORDERED: ACETAMINOPHEN 325 MG TAB PO PRN (10:30)
[2017-09-10] MEDS ORDERED: NITROGLYCERIN 0.4 MG SL TAB SL PRN (10:30)
[2017-09-10 10:59] LABS: INR 0.95 (0.9-1.15); Partial Thromboplastin Time 26.8 sec (22.64-33.71); Prothrombin Time 10.4 sec (9.37-12.3)
[2017-09-10] MEDS: MORPHINE SULFATE 4 MG/ML SYR/VIAL IV PRN ×2 (12:07→17:45)
[2017-09-10] MEDS: Diabetisource AC 1 Liter GT SCH (21:58)
[2017-09-10] MEDS: DOCUSATE ORAL LIQUID 100 MG/10 ML UD GT SCH (22:15)
[2017-09-10] MEDS: INSULIN LANTUS (GLARGINE) 1 /0.01ml (100units/ml) SC SCH (22:16)
[2017-09-11] VITALS (7 sets, daily range): BP systolic 116–159; BP diastolic 70–98
[2017-09-11] MEDS: ACCU-CHEK COMFORT CURVE STRIP VI SCH ×4 (00:22→18:24)
[2017-09-11] MEDS: InsuLIN REG 1unit/0.01ml Soln (100units/ml) SC SCH ×4 (00:22→18:00)
[2017-09-11] MEDS: FREE WATER GT SCH ×4 (00:22→18:24)
[2017-09-11] MEDS: ACETYLCYSTEINE 10 %(100MG/ML) SOL 4ML NEB SCH ×4 (00:38→18:42)
[2017-09-11] MEDS: IPRATROPIUM BROM 0.5 MG/2.5ML INH SOL NEB SCH ×4 (00:38→18:41)
[2017-09-11] MEDS: ALBUTEROL SULF 2.5 MG/0.5ML(0.5%) NEB SOLN NEB SCH ×4 (00:38→18:42)
[2017-09-11] MEDS: LACTULOSE 20Gm/30ML SOLN GT SCH ×5 (02:21→22:34)
[2017-09-11] MEDS ORDERED: IPRATROPIUM BROM 0.5 MG/2.5ML INH SOL ONE (05:47)
[2017-09-11] MEDS ORDERED: ALBUTEROL SULF 2.5 MG/0.5ML(0.5%) NEB SOLN ONE ×2 (05:47→18:22)
[2017-09-11] MEDS: metFORMIN HYDROCHLORIDE 500 MG TAB PEG SCH ×2 (06:21→17:25)
[2017-09-11] MEDS ORDERED: PANTOPRAZOLE 40 MG/10 ML VIAL IV SCH (10:00)
[2017-09-11] MEDS: MAGNESIUM OXIDE 400 MG TAB PO SCH (10:00)
[2017-09-11 10:18] LABS: Basophils # (auto) 0.1 uL; Basophils % (auto) 1.2 % (0.0-2.0); Eosinophils # (auto) 0.4 uL; Eosinophils % (auto) 5.4 % (0.0-7.0); Hematocrit 42.5 % (41.0-53.0); Hemoglobin 13.9 g/dL (13.5-17.5); Lymphocytes # (auto) 1.7 uL; Lymphocytes % (auto) 22.6 % (10.0-50.0); Mean Corpuscular Hemoglobin 28.8 pg (28.0-32.0); Mean Corpuscular Hgb Conc. 32.7 g/dL (32.0-36.0); Mean Corpuscular Volume 88.1 fL (80.0-100.0); Monocytes # (auto) 0.5 uL; Monocytes % (auto) 7.2 % (0.0-12.0); Neutrophils # (auto) 4.8 uL; Neutrophils % (auto) 63.6 % (37.0-80.0); Nucleated Red Blood Cells % 0.1 %; Platelet Count (auto) 204 10^3/uL (140-450); Red Blood Cells 4.82 10^6/uL (4.5-5.90); Red Cell Distribution Width 13.3 % (11.8-14.3); White Blood Cell 7.5 10^3/uL (4.4-10.8)
[2017-09-11 10:36] LABS: BUN/Creatinine Ratio 45.7
[2017-09-11] MEDS ORDERED: ONDANSETRON HCL 4 MG/2 ML VIAL IV PRN (11:00)
[2017-09-11] MEDS: ENOXAPARIN SOD 40 MG/0.4 ML SYRINGE SC SCH (11:14)
[2017-09-11] MEDS: DOCUSATE ORAL LIQUID 100 MG/10 ML UD GT SCH (11:14)
[2017-09-11] MEDS: AMIKACIN 1,000 MG in D5W 5% 100 ML IV SCH (11:15)
[2017-09-11] MEDS: LEVETIRACETAM 500 MG/5ML ORAL SOLN UD GT SCH ×2 (11:15→22:34)
[2017-09-11] MEDS ORDERED: LACTULOSE 20Gm/30ML SOLN GT SCH ×2 (14:00→22:00)
[2017-09-11] MEDS ORDERED: OMEPRAZOLE 20MG/10ML ORAL SUSP GT ONE (16:30)
[2017-09-11] MEDS ORDERED: ACETYLCYSTEINE 10 %(100MG/ML) SOL 4ML ONE (18:27)
[2017-09-11] MEDS ORDERED: DOCUSATE ORAL LIQUID 100 MG/10 ML UD GT PRN (22:00)
[2017-09-11] MEDS: INSULIN LANTUS (GLARGINE) 1 /0.01ml (100units/ml) SC SCH (22:34)
[2017-09-12] MEDS: FREE WATER GT SCH ×3 (00:05→12:00)
[2017-09-12] MEDS: ACCU-CHEK COMFORT CURVE STRIP VI SCH ×3 (00:08→12:00)
[2017-09-12] MEDS: InsuLIN REG 1unit/0.01ml Soln (100units/ml) SC SCH ×3 (00:08→12:00)
[2017-09-12] MEDS ORDERED: IPRATROPIUM BROM 0.5 MG/2.5ML INH SOL ONE ×2 (00:12→11:45)
[2017-09-12] MEDS ORDERED: ALBUTEROL SULF 2.5 MG/0.5ML(0.5%) NEB SOLN ONE ×2 (00:12→11:45)
[2017-09-12] MEDS: IPRATROPIUM BROM 0.5 MG/2.5ML INH SOL NEB SCH ×3 (00:31→12:32)
[2017-09-12] MEDS: ALBUTEROL SULF 2.5 MG/0.5ML(0.5%) NEB SOLN NEB SCH ×3 (00:31→12:32)
[2017-09-12] MEDS: ACETYLCYSTEINE 10 %(100MG/ML) SOL 4ML NEB SCH ×3 (00:32→12:32)
[2017-09-12 05:19] VITALS: BP 137/86
[2017-09-12] MEDS: metFORMIN HYDROCHLORIDE 500 MG TAB PEG SCH (06:11)
[2017-09-12 07:15] LABS: Basophils # (auto) 0.1 uL; Eosinophils # (auto) 0.3 uL; Eosinophils % (auto) 3.7 % (0.0-7.0); Hematocrit 39.8 % (41.0-53.0); Hemoglobin 13.1 g/dL (13.5-17.5); Lymphocytes # (auto) 1.5 uL; Lymphocytes % (auto) 18.5 % (10.0-50.0); Mean Corpuscular Hemoglobin 29.3 pg (28.0-32.0); Mean Corpuscular Volume 88.8 fL (80.0-100.0); Monocytes # (auto) 0.5 uL; Monocytes % (auto) 6.6 % (0.0-12.0); Neutrophils # (auto) 5.7 uL; Neutrophils % (auto) 70.2 % (37.0-80.0); Nucleated Red Blood Cells % 0.1 %; Platelet Count (auto) 191 10^3/uL (140-450); Red Blood Cells 4.48 10^6/uL (4.5-5.90); White Blood Cell 8.1 10^3/uL (4.4-10.8)
[2017-09-12 07:31] LABS: Calcium 8.7 mg/dL (8.5-10.1); Potassium 3.8 mmol/L (3.5-5.1)
[2017-09-12 07:34] LABS: BUN/Creatinine Ratio 41.1
[2017-09-12 08:00] VITALS: BP 129/66
[2017-09-12 08:30] VITALS: BP 129/66
[2017-09-12 09:37] VITALS: BP 145/80
[2017-09-12] MEDS ORDERED: OMEPRAZOLE 20MG/10ML ORAL SUSP GT SCH (10:00)
[2017-09-12] MEDS: MAGNESIUM OXIDE 400 MG TAB PO SCH (10:30)
[2017-09-12] MEDS: AMIKACIN 1,000 MG in D5W 5% 100 ML IV SCH (10:31)
[2017-09-12] MEDS: LACTULOSE 20Gm/30ML SOLN GT SCH (10:31)
[2017-09-12] MEDS: ENOXAPARIN SOD 40 MG/0.4 ML SYRINGE SC SCH (10:31)
[2017-09-12] MEDS: LEVETIRACETAM 500 MG/5ML ORAL SOLN UD GT SCH (10:32)
== END 2017-09-12 16:00 | disposition home health service (06) | DRG 871 ==
LOC: EDBD 20:54 → ER 21:01 → TELE 21:02 → DOU IN ICU 08-30 23:38 → TELE-CENTR 08-31 23:00 → CENTRAL 09-04 17:33
PROVIDERS: ADMIT Nurse Practitioner; ATTEND Internal Medicine
DX: A41.9 Sepsis, unspecified organism (principal); J96.20 Acute and chronic respiratory failure, unspecified whether with hypoxia or hypercapnia; J69.0 Pneumonitis due to inhalation of food and vomit; E87.0 Hyperosmolality and hypernatremia; J90 Pleural effusion, not elsewhere classified; I10 Essential (primary) hypertension; E11.319 Type 2 diabetes mellitus with unspecified diabetic retinopathy without macular edema; E11.40 Type 2 diabetes mellitus with diabetic neuropathy, unspecified; E78.5 Hyperlipidemia, unspecified; E87.6 Hypokalemia; H17.9 Unspecified corneal scar and opacity; H54.7 Unspecified visual loss; K56.41 Fecal impaction; Z51.5 Encounter for palliative care; Z74.01 Bed confinement status; Z86.73 Personal history of transient ischemic attack (TIA), and cerebral infarction without residual deficits; Z79.4 Long term (current) use of insulin; Z82.49 Family history of ischemic heart disease and other diseases of the circulatory system; Z93.1 Gastrostomy status; Z83.3 Family history of diabetes mellitus; Z99.81 Dependence on supplemental oxygen
CPT/HCPCS: 31720; 36415; 36600; 51702; 71045; 74176; 80048; 80053; 80150; 80202; 81001; 82805; 82962; 83036; 83605; 83735; 83880; 84484; 85007; 85025; 85027; 85610; 85730; 87040; 87070; 87077; 87081; 87186; 87205; 87804; 93005; 94640; 96361; 96365; 96372; 96375; C9113; J1815; J1956; J2405; J2543; J7060